=== PATIENT | male | born 1965 | race Caucasian/White ===

== ENCOUNTER 2018-02-27 06:55 | Emergency (ER) | payer BC ==
[2018-02-27 07:03] VITALS: BP 140/76; BMI 44.7
--- NOTE | 2018-02-27 07:28 | DR.GENAD ---
HPI - PCP Primary Care Physician: vilma otero - HPI Comment HPI Comment: PATIENT TREATED FOR DIVERTICULITIS BUT DIARRHEA PERSISTS AND GETTING WORSE. PATIENT IS WEAK. CONTRAST ABD/PELVIS CT DONE AT [place] ONE WEEK AGO. REPORT NOT KNOWN. NO FEVER. NO DYSURIA. - Complaint/Symptoms Chief Complaint Doctors Comments: LLQ ABDOMINAL PAIN ASSOCIATED WITH DIARRHEA TIMES 3 WEEKS. Chief Complaint:: "for three week i have had left lower abd pain was treated for diverticulities and it hasnt got any better, now im having runny stool" Self Treatment fo Chief Complaint: had a CT done in [place] don't know what it said - Nurses notes reviewed Nurses Notes Review: Yes - Source History Provided: Patient - Mode of Arrival Mode of Arrival: Ambulatory - Timing Onset of Chief Complaint: 02/06/18 Came on: Gradually - Duration Duration: Constant Duration: Weeks - Severity Severity: Moderate <JERZY ALEXANDER - Last Filed: 02/27/18 08:11> PMH - PMH Past Medical History: Yes Past Medical History: Diabetes Past Surgical History: Yes Past Surgical History Comment: abdomen mesh - Family History History of Family Medical Conditions: No - Social History Does patient currently use any type of tobacco product: No Have you used tobacco products in the last 12 months: No Type of Tobacco Use: None Does any household member use tobacco: No Alcohol Use: None Do you use any recreational Drugs:: No Lives With: Family Lives Where: Home - infectious screening In the last 2 months have you had wt loss of >10#?: NO Have you had fever, night sweats or hemotysis?: No Have you traveled outside the country in the last 6 months?: No Isolation: Standard <JERZY ALEXANDER - Last Filed: 02/27/18 08:11> ROS - Review of Systems Constitutional: Weakness, Fatigue. negative: Chills, Fever Eyes: No Symptoms Reported. negative: Eye Pain, Discharge ENTM: No Symptoms Reported. negative: Ear Pain, Nose Discharge, Nose Congestion , Throat Pain Respiratoy: Short of Breath (ON EXERSION.). negative: Productive Cough, Non- Productive Cough, Wheezing, Hemoptysis Cardiovascular: No Symptoms Reported. negative: Chest Pain Gastrointestinal/Abdominal: Abdominal Pain, Diarrhea. negative: Nausea, Vomiting Genitourinary: negative: Dysuria, Frequency, Hematuria Neurological: Weakness. negative: Headache, Dizziness Musculoskeletal: Muscle Pain Integumentary: No Symptoms Reported Hematologic/Lymphatic: No Symptoms Reported Endocrine: No Symptoms Reported All Other Systems: Reviewed and Negative <JERZY ALEXANDER - Last Filed: 02/27/18 08:11> PE - General Limitations: No Limitations General Appearance: Alert - Head Head Exam: Normal Inspection - Eyes Eye exam: Normal Appearance - ENT ENT Exam: Normal External Ear Exam External Ear Exam: Normal External Inspection TM/Canal Exam: Bilateral Normal Nose Exam: Normal Nose Exam Mouth Exam: Normal Inspection Throat Exam: Normal Inspection - Neck Neck Exam: Trachea Midline - Chest Chest Inspection: Symmetric Chest Wall Rise - Respiratory Respiratory Exam: Normal Lung Sounds Bilat Respiratory Exam: Bilateral Clear to Auscultation - Cardiovascular Cardiovascular Exam: Regular Rate, Normal Rhythm, Normal Heart Sounds - Abdominal Exam Abdominal Exam: Normal Bowel Sounds, Soft, Tenderness Abdominal Tenderness: LLQ, Moderate - Extremities Extremities Exam: Normal Inspection - Back Back Exam: Normal Inspection - Neurologic Neurological Exam: Alert, Oriented X3 - Psychiatric Psychiatric Exam: Normal Affect, Normal Mood - Skin Skin Exam: Normal Color <JERZY ALEXANDER - Last Filed: 02/27/18 08:11> - Vital Signs Vitals: Temperature 97.2 F Pulse Rate 100 Respiratory Rate 18 Blood Pressure 140/76 O2 Sat by Pulse Oximetry 98 MDM - Differential Diagnosis Differential Diagnosis: ABDOMINAL PAIN, DIARRHEA <JERZY ALEXANDER - Last Filed: 02/27/18 08:11> Course - Treatment Treatment: SEE ORDERS. <JERZY ALEXANDER - Last Filed: 02/27/18 08:11> - Education/Counseling Educated On: Treatment, Diagnosis, Prognosis, Needs for Follow Up <SEVERINO VALADEZ - Last Filed: 02/27/18 12:31> ROR - Labs Reviewed Result Diagrams: 02/27/18 07:43 02/27/18 07:43 <JERZY ALEXANDER - Last Filed: 02/27/18 08:11> - Labs Reviewed Laboratory Results Reviewed?: Yes (Stool: positive for wbcs) Result Diagrams: 02/27/18 07:43 02/27/18 07:43 - XRAY XRAY Interpreted by: Radiologist (CT ABD/Pel: The lung bases are clear. The liver, spleen, adrenal glands, and pancreas are within normal limits. No opaque stones are visible within the gallbladder. The kidnesy are unobstructed and without stones or masses. No ureteral calculi are identified. No intraperitoneal or retroperitoneal lymphadenopathy of significance is identified. The appendix is not identified with absolute certainty. There are no secondary signs of appendicitis present. There are no findings suggestive of diverticulitis or colitis. The patient is status post ventral hernia repair. Examination of the pelvis demonstrated no evidience for pelivc masses, pelvic fluid or pelvic lymphadenopathy. No bladder abnormality is identified. No lytic or blastic skeletal lesions are identified. Impressin No significant abnormality identified.) <SEVERINO VALADEZ - Last Filed: 02/27/18 12:31> - Labs Reviewed Laboratory: 02/27/18 07:58 Stool - Final WBC 10.5 X10^3/uL (3.6-10.0) H 02/27/18 07:43 RBC 4.91 X10^6/uL (4.7-6.0) 02/27/18 07:43 Hgb 14.3 g/dL (13.5-18.0) 02/27/18 07:43 Hct 42.1 % (42.0-54.0) 02/27/18 07:43 MCV 85.7 fL (80.0-100.0) 02/27/18 07:43 MCH 29.2 pg (27.0-34.0) 02/27/18 07:43 MCHC 34.0 g/dL (33.0-35.0) 02/27/18 07:43 RDW 14.1 % (11.6-16.5) 02/27/18 07:43 Plt Count 240 X10^3/uL (150.0-450.0) 02/27/18 07:43 MPV 9.2 fL (7.4-11.0) 02/27/18 07:43 Neut % (Auto) 77.9 % (42.0-75.0) H 02/27/18 07:43 Lymph % (Auto) 12.6 % (21.0-51.0) L 02/27/18 07:43 [place] % (Auto) 7.5 % (0.0-13.0) 02/27/18 07:43 Eos % (Auto) 1.3 % (0.9-2.9) 02/27/18 07:43 Baso % (Auto) 0.7 % (0.2-1.0) 02/27/18 07:43 Neut # (Auto) 8.1 x10^3/uL (2.2-4.8) H 02/27/18 07:43 Lymph # (Auto) 1.3 X10^3/uL (1.3-2.9) 02/27/18 07:43 [place] # (Auto) 0.8 x10^3/uL (0.3-0.8) 02/27/18 07:43 Eos # (Auto) 0.1 x10^3/uL (0.0-0.2) 02/27/18 07:43 Baso # (Auto) 0.1 X10^3/uL (0.0-0.1) 02/27/18 07:43 Absolute Nucleated RBC 0.0 /100WBC 02/27/18 07:43 Sodium 136 mmol/L (136-145) 02/27/18 07:43 Corrected Sodium 138 mmol/L (136-145) 02/27/18 07:43 Potassium 4.0 mmol/L (3.5-5.1) 02/27/18 07:43 Chloride 99 mmol/L (98-107) 02/27/18 07:43 Carbon Dioxide 28.7 mmol/L (21-32) 02/27/18 07:43 BUN 6 mg/dL (7-18) L 02/27/18 07:43 Creatinine 1.12 mg/dL (0.70-1.30) 02/27/18 07:43 Est GFR (MDRD) Af Amer > 60 (>60) 02/27/18 07:43 Est GFR (MDRD) Non-Af > 60 (>60) 02/27/18 07:43 Glucose 179 mg/dL (65-99) H 02/27/18 07:43 Calcium 8.5 mg/dL (8.5-10.1) 02/27/18 07:43 Corrected Calcium 9.3 mg/dL (8.5-10.1) 02/27/18 07:43 Total Bilirubin 0.40 mg/dL (0.2-1.0) 02/27/18 07:43 AST 22 Units/L (15-37) 02/27/18 07:43 ALT 26 Units/L (12-78) 02/27/18 07:43 Alkaline Phosphatase 78 Units/L (46-116) 02/27/18 07:43 C-Reactive Protein 107.70 mg/L (0-3.0) H 02/27/18 07:43 Total Protein 7.9 g/dL (6.4-8.2) 02/27/18 07:43 Albumin 3.0 g/dL (3.4-5.0) L 02/27/18 07:43 Globulin 4.9 g/dL (2.5-4.5) H 02/27/18 07:43 Albumin/Globulin Ratio 0.6 Ratio (1.1-2.1) L 02/27/18 07:43 Amylase 117 Units/L (25-115) H 02/27/18 07:43 Lipase 1751 Units/L (73-393) H 02/27/18 07:43 Specimen Type Random urine 02/27/18 07:51 Urine Color Yellow (YELLOW) 02/27/18 07:51 Urine Appearance Slightly hazy (CLEAR) 02/27/18 07:51 Urine pH 5.0 (5.0 - 8.0) 02/27/18 07:51 Ur Specific [place] 1.020 (1.000-1.030) 02/27/18 07:51 Urine Protein 2+ (NEGATIVE) 02/27/18 07:51 Urine Glucose (UA) Negative (NEGATIVE) 02/27/18 07:51 Urine Ketones Negative (NEGATIVE) 02/27/18 07:51 Urine Occult Blood 1+ (NEGATIVE) 02/27/18 07:51 Urine Nitrite Negative (NEGATIVE) 02/27/18 07:51 Urine Bilirubin Negative (NEGATIVE) 02/27/18 07:51 Urine Urobilinogen Normal (NORMAL) 02/27/18 07:51 Ur Leukocyte Esterase 1+ (NEGATIVE) 02/27/18 07:51 Stool Description Brown, unformed 02/27/18 07:58 Stool for White Cells Positive (NEGATIVE) A 02/27/18 07:58 Stl C. diff Tox B Gene Negative (NEGATIVE) 02/27/18 07:58 Stl C. diff [id number] Negative (NEGATIVE) 02/27/18 07:58 Cryptosporid parvum Ag Negative (NEGATIVE) 02/27/18 07:58 E. histolytica Antigen Negative (NEGATIVE) 02/27/18 07:58 Giardia lamblia Ag Negative (NEGATIVE) 02/27/18 07:58 <JERZY ALEXANDER - Last Filed: 02/27/18 08:11> <SEVERINO VALADEZ - Last Filed: 02/27/18 12:31> - Diagnosis Discharge Problem: Colitis - Discharge Plan Condition: Stable - Follow ups/Referrals Follow ups/Referrals: VILMA OTERO [Primary Care Provider] - 3 days - Instructions
[2018-02-27 07:59] LABS: BILIRUBIN,URINE NEGATIVE (NEGATIVE); BLOOD/HEMOGLOBIN,URINE 1+ (NEGATIVE); GLUCOSE, URINE NEGATIVE (NEGATIVE); KETONES,URINE NEGATIVE (NEGATIVE); LEUKOCYTE ESTERASE ,URINE 1+ (NEGATIVE); NITRITES,URINE NEGATIVE (NEGATIVE); PROTEIN,URINE 2+ (NEGATIVE); UROBILINOGEN,URINE NORMAL (NORMAL)
[2018-02-27 08:01] LABS: BASOPHILS # (AUTO) 0.1 X10^3/uL (0.0-0.1); BASOPHILS % (AUTO) 0.7 % (0.2-1.0); EOSINOPHILS # (AUTO) 0.1 x10^3/uL (0.0-0.2); EOSINOPHILS % (AUTO) 1.3 % (0.9-2.9); HEMATOCRIT 42.1 % (42.0-54.0); HEMOGLOBIN 14.3 g/dL (13.5-18.0); LYMPHOCYTES # (AUTO) 1.3 X10^3/uL (1.3-2.9); LYMPHOCYTES % (AUTO) 12.6 % (21.0-51.0); MEAN CORPUSCULAR HEMOGLOBIN 29.2 pg (27.0-34.0); MEAN CORPUSCULAR VOLUME 85.7 fL (80.0-100.0); MEAN PLATELET VOLUME 9.2 fL (7.4-11.0); MONOCYTES # (AUTO) 0.8 x10^3/uL (0.3-0.8); MONOCYTES % (AUTO) 7.5 % (0.0-13.0); NEUTROPHILS # (AUTO) 8.1 x10^3/uL (2.2-4.8); NEUTROPHILS % (AUTO) 77.9 % (42.0-75.0); PLATELET COUNT 240 X10^3/uL (150.0-450.0); RED BLOOD COUNT 4.91 X10^6/uL (4.7-6.0); RED CELL DISTRIBUTION WIDTH 14.1 % (11.6-16.5); WHITE BLOOD COUNT 10.5 X10^3/uL (3.6-10.0)
[2018-02-27 08:01] LABS: APPEARANCE,URINE SLIGHTLY HAZY (CLEAR); COLOR,URINE YELLOW (YELLOW)
[2018-02-27 08:15] LABS: ALANINE AMINOTRANSFERASE 26 Units/L (12-78); ALKALINE PHOSPHATASE 78 Units/L (46-116); AMYLASE 117 Units/L (25-115); ASPARTATE AMINO TRANSFERASE 22 Units/L (15-37); BLOOD UREA NITROGEN 6 mg/dL (7-18); CALCIUM 8.5 mg/dL (8.5-10.1); CARBON DIOXIDE 28.7 mmol/L (21-32); CHLORIDE 99 mmol/L (98-107); COR CA(FOR HYPOALB) 9.3 mg/dL (8.5-10.1); COR NA(FOR HYPERGLY) 138 mmol/L (136-145); CREATININE 1.12 mg/dL (0.70-1.30); SODIUM 136 mmol/L (136-145); TOTAL PROTEIN 7.9 g/dL (6.4-8.2); eGFR BLACK RACES > 60 (>60); eGFR NON BLACK RACES > 60 (>60)
[2018-02-27 08:17] LABS: LIPASE 1751 Units/L (73-393)
--- NOTE | 2018-02-27 08:34 | RAD ---
HISTORY: Left lower quadrant pain. Diarrhea. Study: PA chest with supine and upright abdominal views Comparison: None Findings: The lungs are clear. Mild cardiomegaly is present. No acute bony abnormalities are identified. Examination of the abdomen demonstrates a paucity of bowel gas. There is minimal to mild noted in th e colon. Very minimal is noted in the small bowel. Patient has had previous hernia repair. There a ppears be a tablet present projected in upper abdomen. Mild lumbar spondylosis and degenerative santamaria ges present in the hips. No evidence of pneumoperitoneum is present IMPRESSION: 1. Mild cardiomegaly without evidence of failure. 2. Nonspecific bowel gas pattern. A paucity of small bowel gas is present. I cannot exclude the po ssibility of a bowel obstruction. Follow-up as clinically indicated. Reported By:
[2018-02-27 09:48] LABS: CRYPTOSPORIDIUM PARVUM ANTIGEN NEGATIVE (NEGATIVE); GIARDIA LAMBLIA ANTIGEN NEGATIVE (NEGATIVE)
[2018-02-27 09:49] LABS: STOOL FOR WBC POSITIVE (NEGATIVE)
[2018-02-27] MEDS ORDERED: NS 100 ML IV 100 ML IV ONE (11:35)
--- NOTE | 2018-02-27 12:13 | CT ---
HISTORY: Abdominal pain Study: CT abdomen pelvis with contrast Comparison: None Technique: Axial post-contrast images with coronal and sagittal reformats. Dose reduction procedures were used with mA/kv adjusted for body size. Findings: The lung bases are clear. The liver, spleen, adrenal glands, and pancreas are within normal limits. N o opaque stones are visible within the gallbladder. The kidneys are unobstructed and without stones o r masses. No ureteral calculi are identified. No intraperitoneal or retroperitoneal lymphadenopathy o f significance is identified. The appendix is not identified with absolute certainty. There are no se condary signs of appendicitis present. There are no findings suggestive of diverticulitis or colitis. The patient is status post ventral hernia repair. Examination of the pelvis demonstrated no evidence for pelvic masses, pelvic fluid, or pelvic lymphadenopathy. No bladder abnormality is identified. No lytic or blastic skeletal lesions are identified. IMPRESSION: No significant abnormality identified Reported By:
== END 2018-02-27 12:44 | disposition home or self-care (01) ==
LOC: ER 07:12
DX: K52.89 Other specified noninfective gastroenteritis and colitis (principal); R10.32 Left lower quadrant pain; B95.62 Methicillin resistant Staphylococcus aureus infection as the cause of diseases classified elsewhere
CPT/HCPCS: 36415; 74022; 74177; 80053; 81003; 82150; 83630; 83690; 85025; 86140; 87045; 87077; 87186; 87328; 87329; 87336; 87427; 87449; 87493; 96365; 99283; A4222